=== PATIENT | female | born 1995 | race Caucasian/White ===

== ENCOUNTER 2017-06-17 08:53 | Emergency (ER) | payer OTHER, SELFPAY ==
[2017-06-17] MEDS ORDERED: Ketorolac Tromethamine 60 MG/2 ML VIAL ONE (09:14)
--- NOTE | 2017-06-17 11:32 | RAD ---
RIGHT WRIST TWO VIEWS: Date: 06-17-17 FINDINGS: Navicular views were added to this study. No fracture was identified. The navicular currently appear s intact. The carpal relationships are normal. IMPRESSION: No significant finding. POS: [facility]
--- NOTE | 2017-06-17 11:49 | RAD ---
THREE VIEW RIGHT WRIST SERIES: Clinical history: Pain. Comparison: None. FINDINGS: No evidence of fracture or dislocation. No radiopaque foreign body. IMPRESSION: No acute osseous abnormality in the right wrist. POS: [facility]
== END 2017-06-17 10:10 | disposition home or self-care (01) ==
LOC: BURERS 08:53
DX: S63.501A Unspecified sprain of right wrist, initial encounter (principal); W18.30XA Fall on same level, unspecified, initial encounter
CPT/HCPCS: 96372; J1885

== ENCOUNTER 2019-10-18 18:43 | Emergency (ER) | payer OTHER ==
[2019-10-18] MEDS ORDERED: Lorazepam 2 MG/ML VIAL ONE (19:44)
[2019-10-18 19:47] LABS: #Basophils 0.1 thou/uL (0.0-0.2); #Eosinphils 0.1 thou/uL (0.0-0.7); #Lymphocytes 2.6 thou/uL (1.20-3.40); #Monocytes 0.8 thou/uL (0.11-0.59); #Neutrophils 5.4 thou/uL (1.40-6.50); %Eosinophils 1.3 % (0.0-10.0); %Lymphocytes 28.7 % (21.0-51.0); %Monocytes 8.9 % (0.0-10.0); %Neutrophils 60.1 % (42.0-75.0); Mean Corpuscular HGB CONC 30.7 g/dL (32.0-36.0); Mean Corpuscular Volume 81.6 fL (78.0-98.0); Mean Platelet Volume 9.8 fL (7.4-10.4); Platelet Count 200 thou/uL (130-400); RBC Distribution Width 13.8 % (11.5-14.5); Red Blood Cell (RBC) Count 4.41 mill/uL (4.20-5.40); White Blood Cell (WBC) Count 9.1 thou/uL (4.8-10.8)
[2019-10-18 20:03] LABS: Acetaminophen Less than 6.0 mcg/mL (10.0-30.0); Alcohol Less than 10 mg/dL (Less than 10); Salicylate Less than 8.0 mg/dL (15.0-30.0)
[2019-10-18 20:05] LABS: ALT (SGPT) 10 U/L (8-55); AST (SGOT) 12 U/L (5-34); Albumin 3.8 g/dL (3.5-5.0); Alkaline Phosphatase 50 U/L (40-110); Anion Gap 11 mmol/L (10-20); BUN (Urea Nitrogen) 16 mg/dL (7.0-18.7); Bilirubin, Total 0.4 mg/dL (0.2-1.2); Calc. Creatinine Clearance 0 mL/min (70-130); Calcium 8.7 mg/dL (7.8-10.44); Carbon Dioxide 21 mmol/L (22-29); Chloride 111 mmol/L (98-107); Estimated GFR-MDRD 89; Globulin 2.5 g/dL (2.4-3.5); Glucose 80 mg/dL (70-105); Potassium 3.9 mmol/L (3.5-5.1); Protein, Total 6.3 g/dL (6.0-8.3); Sodium 139 mmol/L (136-145)
== END 2019-10-18 22:30 | disposition home or self-care (01) ==
LOC: BURERS 18:43
DX: T43.611A Poisoning by caffeine, accidental (unintentional), initial encounter (principal)
CPT/HCPCS: 80053; 80307; 85025; 93005; 96361; 96374; J2060

== ENCOUNTER 2020-01-12 18:51 | Emergency (ER) | payer OTHER ==
[2020-01-12 19:36] LABS: #Basophils 0.1 thou/uL (0.0-0.2); #Lymphocytes 0.4 thou/uL (1.20-3.40); #Monocytes 0.6 thou/uL (0.11-0.59); #Neutrophils 6.8 thou/uL (1.40-6.50); %Basophils 0.9 % (0.0-1.0); %Eosinophils 0.4 % (0.0-10.0); %Lymphocytes 5.3 % (21.0-51.0); %Monocytes 7.9 % (0.0-10.0); %Neutrophils 85.5 % (42.0-75.0); Hemoglobin 12.3 g/dL (12.0-16.0); Mean Corpuscular HGB CONC 31.5 g/dL (32.0-36.0); Mean Corpuscular Hemoglobin 25.3 pg (27.0-31.0); Mean Corpuscular Volume 80.5 fL (78.0-98.0); Mean Platelet Volume 11.1 fL (7.4-10.4); Platelet Count 156 thou/uL (130-400); RBC Distribution Width 13.7 % (11.5-14.5); Red Blood Cell (RBC) Count 4.87 mill/uL (4.20-5.40)
[2020-01-12 19:51] LABS: ALT (SGPT) 27 U/L (8-55); AST (SGOT) 26 U/L (5-34); Albumin 4.2 g/dL (3.5-5.0); Alkaline Phosphatase 60 U/L (40-110); Anion Gap 14 mmol/L (10-20); BUN (Urea Nitrogen) 14 mg/dL (7.0-18.7); Bilirubin, Total 0.3 mg/dL (0.2-1.2); Calc. Creatinine Clearance 0 mL/min (70-130); Calcium 8.8 mg/dL (7.8-10.44); Carbon Dioxide 20 mmol/L (22-29); Chloride 110 mmol/L (98-107); Estimated GFR-MDRD 84; Globulin 3.1 g/dL (2.4-3.5); Glucose 101 mg/dL (70-105); Protein, Total 7.3 g/dL (6.0-8.3); Sodium 140 mmol/L (136-145)
--- NOTE | 2020-01-12 19:51 | RAD ---
XR Chest 1 View Portable HISTORY: Cough, fever, tachycardia COMPARISON: None FINDINGS: The heart size is normal. The lungs are well expanded without focal areas of consolidation, pneumothorax or pleural effusions. IMPRESSION: No radiographic evidence of acute cardiopulmonary process.
[2020-01-12 19:56] LABS: Potassium 4.4 mmol/L (3.5-5.1)
[2020-01-12 19:58] LABS: BHCG - Serum Negative (NEGATIVE); Pregs Control Background? CLEAR/WHITE (CLR/WHITE); Pregs Control Bar Appear? YES (CONTROL BAR)
[2020-01-12] MEDS ORDERED: Acetaminophen 500 MG TAB ONE (20:43)
[2020-01-12] MEDS ORDERED: Piperacillin/Tazobactam 4.5 GM VIAL ONE (21:07)
[2020-01-12 21:15] LABS: Bacteria/HPF 1+ HPF (None Seen); Bilirubin Negative (Negative); Blood, Urine Negative (Negative); Clarity Clear (Clear); Glucose, Urine (Dipstick) Negative (Negative); Leukocyte Small (Negative); Nitrite Negative (Negative); Protein, Urine (Dipstick) Negative (Neg-Trace); RBC/HPF 0-3 HPF (0-3); Squamous Epithelial 0-3 HPF (0-3); Urobilinogen 0.2 mg/dL (Less than 2)
[2020-01-12 21:16] LABS: Yeast-Budding Rare HPF (None Seen)
== END 2020-01-12 23:53 | disposition home or self-care (01) ==
LOC: BURERS 18:51
DX: A41.9 Sepsis, unspecified organism (principal); E05.90 Thyrotoxicosis, unspecified without thyrotoxic crisis or storm
CPT/HCPCS: 36415; 71045; 80053; 81003; 81015; 83605; 84443; 84484; 84703; 85025; 85379; 87040; 87086; 87804; 93005; 96361; 96365; 96366; 96367; 99292; J2543; J3370